=== PATIENT | male | born 1965 | race Caucasian/White ===

== ENCOUNTER 2017-09-12 14:56 | Emergency (ER) | payer BC ==
[~2017-09-12] VITALS: Ht 172.7 cm; Wt 88.9 kg
[~2017-09-12 14:56] MED LIST: PAXIL40 MG PO; SIMVASTATIN40 MG PO
[2017-09-12 15:58] LABS: BASOPHIL (%) 0.3 % (0-1); EOSINOPHIL (%) 0 % (0-5); HEMATOCRIT 29.9 % (38.0-50.0); HEMOGLOBIN 10.4 G/DL (12.5-16.6); IMMATURE GRANULOCYTE (%) 0.3 % (0.0-0.7); LYMPHOCYTE (%) 4.1 % (15-42); LYMPHOCYTE COUNT 0.1 K/uL (1.0-2.8); MCH 31.1 PG (29.0-34.0); MCHC 34.8 G/DL (30.0-36.0); MCV 89.5 FL (86-99); MONOCYTE (%) 19.4 % (3-12); MONOCYTE COUNT 0.6 K/uL (0-0.8); NEUTROPHIL (%) 75.9 % (45-76); NEUTROPHIL COUNT 2.2 K/uL (1.8-6.4); RBC DIS.WIDTH-SD 55.6 % (39-53); RED BLOOD COUNT 3.34 M/uL (4.00-5.50); WHITE BLOOD COUNT 2.9 K/uL (4.1-10.2)
[2017-09-12 16:08] LABS: ALBUMIN 4.2 g/dL (3.2-4.8); CHLORIDE 107 mEq/L (99-109)
[2017-09-12 16:09] LABS: POTASSIUM 3.9 mEq/L (3.7-5.4); SODIUM 135 mEq/L (136-147)
[2017-09-12 16:11] LABS: GLUCOSE 126 mg/dL (70-99)
[2017-09-12 16:13] LABS: TOTAL BILIRUBIN 0.4 mg/dL (0.0-1.0)
[2017-09-12 16:14] LABS: ALKALINE PHOSPHATASE 73 IU/L (3-129); GFR ESTIMATE (CALCULATED) > 59 mL/min/ (58.99-99999)
[2017-09-12 16:16] LABS: AST (GOT) 46 IU/L (2-34); UREA NITROGEN (BUN) 12 mg/dL (9-23)
[2017-09-12 16:17] LABS: ALT (GPT) 51 IU/L (3-49)
[2017-09-12] MEDS ORDERED: ZOLPIDEM TARTRA10 MG PO (16:51)
[2017-09-12] MEDS ORDERED: OXYCODONE HCL5 MG PO (16:52)
[2017-09-12] MEDS ORDERED: PAROXETINE HCL20 MG PO (16:58)
[2017-09-12] MEDS ORDERED: BACTRIM,SEPT1 TABLE1 PO (16:59)
[2017-09-12] MEDS ORDERED: ACYCLOVIR800 MG PO (16:59)
[2017-09-12] MEDS ORDERED: LO-DOSE ASPIRIN81 M2 PO (17:00)
[2017-09-12] MEDS ORDERED: SIROLIMUS2 MG PO (17:01)
[2017-09-12 18:34] LABS: IMM.PLATELET FRACTION 3.2 (1-7); PLAT.SUFFICIENCY DECREASED; PLATELET COUNT 47 K/uL (156-360)
[2017-09-12] MEDS ORDERED: TAMIFLU75 MG PO (18:53)
[2017-09-12 20:30] VITALS: BP 127/87
== END 2017-09-12 21:02 | disposition home or self-care (01) ==
LOC: EME 14:56
PROVIDERS: Emergency Medicine
DX: J10.1 Influenza due to other identified influenza virus with other respiratory manifestations (principal); C85.90 Non-Hodgkin lymphoma, unspecified, unspecified site; Z94.81 Bone marrow transplant status; E78.5 Hyperlipidemia, unspecified; F32.9 Major depressive disorder, single episode, unspecified; Z87.891 Personal history of nicotine dependence
CPT/HCPCS: 80053; 85025; 99281; 99285